=== PATIENT | male | born 1950 | race Caucasian/White ===

== ENCOUNTER 2017-11-28 00:53 | Inpatient (IN) | payer OTHER ==
[2017-11-28] MEDS ORDERED: Famotidine 20 MG/2 ML SDV IVPUSH ONE (00:57)
[2017-11-28] MEDS ORDERED: methylPREDNISolone Sodium Succinate 125 MG/2 ML SDV IVPUSH ONE ×2 (00:57→06:32)
--- NOTE | 2017-11-28 01:11 | EDM.PDOC ---
ED HPI GENERAL MEDICAL PROBLEM - General Chief Complaint: Allergic Reaction Stated Complaint: [facility] Time Seen by Provider: 11/28/17 01:00 - History of Present Illness INITIAL COMMENTS - FREE TEXT/NARRATIVE: 66-year-old male presents emergency room with hives tongue and facial swelling. Patient has had itching and hives for the last 2-3 days then this evening he noted throat tightness and tongue swelling. Patient is not aware of any new exposures. Patient has not had problems like this in the past the patient has had a cough bringing up mostly clear sputum at times blood-tinged. EMS thought he was vomiting but with further clarification from the patient he was not vomiting just had this productive cough. The patient does not smoke however 25 years ago he was a light smoker currently the patient uses oral tobacco. In route the patient received IM epinephrine Benadryl and Zofran his itching is not completely resolved but much better. Throat Pain Score (Numeric/FACES): 8 - Related Data Allergies Allergy/AdvReac Type Severity Reaction Status Date / Time No Known Allergies Allergy Verified 11/28/17 01:24 Home Meds: Home Meds Allopurinol [Zyloprim] 300 mg PO DAILY 04/20/15 [History] Simvastatin [Zocor] 40 mg PO BEDTIME 04/20/15 [History] Past Medical History HEENT History: Reports: Epistaxis, Impaired Vision Cardiovascular History: Reports: Afib, High Cholesterol, Hypertension Other Cardiovascular History: heart ablation > 5 yrs ago. Gastrointestinal History: Reports: Colon Polyp, GERD Genitourinary History: Reports: Chronic Renal Insuffiency Musculoskeletal History: Reports: Fracture, Gout, Osteoarthritis Oncologic (Cancer) History: Reports: Prostate - Past Surgical History Cardiovascular Surgical History: Reports: Other (See Below) Musculoskeletal Surgical History: Reports: Hip Replacement, ORIF Social & Family History - Family History Respiratory: Reports: Other (See Below) Other Respiratory Family Hisory: emphysema Musculoskeletal: Reports: Osteoporosis Neurological: Reports: CVA Endocrine/Metabolic: Reports: Diabetes, type II Oncologic: Reports: Breast, Esophageal, Liver - Caffeine Use Caffeine Use: Reports: None - Living Situation & Occupation Living situation: Reports: , with Spouse Occupation: Employed ED ROS ALLERGIC REACTION - Review of Systems Review Of Systems: See Below Constitutional: Reports: No Symptoms HEENT: Reports: Rhinitis, Throat Swelling. Denies: Sinus Problem Respiratory: Reports: Cough, Sputum, Hemoptysis. Denies: Shortness of Breath Cardiovascular: Denies: Chest Pain, Blood Pressure Problem, Dyspnea on Exertion , Edema, Palpitations Endocrine: Reports: No Symptoms GI/Abdominal: Reports: Nausea. Denies: Abdominal Pain : Reports: No Symptoms Musculoskeletal: Reports: No Symptoms Skin: Reports: Rash, Urticaria Neurological: Reports: No Symptoms ED EXAM GENERAL NO PERIP PULSE - Physical Exam Exam: See Below Exam Limited By: No Limitations General Appearance: Alert, No Apparent Distress Eye Exam: Bilateral Eye: Normal Inspection Ears: Normal External Exam, Normal Canal, Hearing Grossly Normal, Normal TMs Nose: Normal Inspection, Normal Mucosa, No Blood Throat/Mouth: Normal Inspection, Normal Lips, Normal Teeth, Normal Gums, Normal Oropharynx, Normal Voice, No Airway Compromise Head: Atraumatic, Normocephalic Neck: Normal Inspection, Supple, Non-Tender, Full Range of Motion Respiratory/Chest: No Respiratory Distress, Lungs Clear, Normal Breath Sounds Cardiovascular: Regular Rate, Rhythm, No Edema, No Murmur Back Exam: Normal Inspection. No: CVA Tenderness (L), CVA Tenderness (R) Extremities: Normal Inspection Neurological: Alert, Oriented, Normal Cognition Skin Exam: Other (Faint hives) Lymphatic: No Adenopathy Course - Vital Signs Last Recorded V/S: Last Vital Signs Temp 36.3 C 11/28/17 01:21 Pulse 86 11/28/17 01:21 Resp 15 11/28/17 01:21 BP 97/85 11/28/17 01:21 Pulse Ox 95 11/28/17 01:21 - Orders/Labs/Meds Orders: Active Orders 24 hr Category Date Time Status RT Aerosol Therapy [RC] ASDIRECTED Care 11/28/17 06:41 Active Chest 2V [CR] Stat Exams 11/28/17 01:05 Taken Soft Tissue Neck w Cont [CT] Stat Exams 11/28/17 03:20 Taken CULTURE STREP A CONFIRMATION [] Stat Lab 11/28/17 02:18 Results STREP SCRN A RAPID W CULT CONF [RM] Stat Lab 11/28/17 02:18 Ordered Labs: Laboratory Tests 11/28/17 Range/Units 02:35 Sodium 138 (136-145) mEq/L Potassium 4.3 (3.5-5.1) mEq/L Chloride 107 (98-107) mEq/L Carbon Dioxide 19 L (21-32) mEq/L Anion Gap 16.3 H (5-15) BUN 25 H (7-18) mg/dL Creatinine 1.6 H (0.7-1.3) mg/dL Est Cr Clr Drug Dosing 45.63 mL/min Estimated GFR (MDRD) 43 (>60) mL/min BUN/Creatinine Ratio 15.6 (14-18) Glucose 112 (80-115) mg/dL Calcium 8.6 (8.5-10.1) mg/dL Meds: Medications Discontinued Medications Generic Name Dose Route Start Last Admin Trade Name Freq PRN Reason Stop Dose Admin Diphenhydramine HCl 25 mg 11/28/17 06:26 Benadryl IVPUSH 11/28/17 06:27 ONETIME ONE Epinephrine HCl 0.5 mg 11/28/17 02:02 11/28/17 02:17 Adrenalin IM 11/28/17 02:03 0.5 mg ONETIME ONE Administration Famotidine 40 mg 11/28/17 00:57 11/28/17 01:17 Pepcid IVPUSH 11/28/17 00:58 40 mg ONETIME ONE Administration Sodium Chloride 1,000 mls @ 999 mls/hr 11/28/17 03:19 11/28/17 03:24 Normal Saline IV 11/28/17 04:19 999 mls/hr ONETIME ONE Administration Iopamidol 80 ml 11/28/17 03:36 11/28/17 05:54 Isovue-300 (61%) IVPUSH 11/28/17 03:37 80 ml ONETIME ONE Administration Methylprednisolone Sodium Succinate 125 mg 11/28/17 00:57 11/28/17 01:17 Solu-Medrol IVPUSH 11/28/17 00:58 125 mg ONETIME ONE Administration Methylprednisolone Sodium Succinate 125 mg 11/28/17 06:32 Solu-Medrol IVPUSH 11/28/17 06:33 ONETIME ONE Ondansetron HCl 4 mg 11/28/17 06:43 Zofran IVPUSH 11/28/17 06:44 ONETIME ONE Racepinephrine 0.5 ml 11/28/17 06:40 S-2 2.25% NEB 11/28/17 06:41 ONETIME ONE - Re-Assessments/Exams Free Text/Narrative Re-Assessment/Exam: 11/28/17 04:36 Check a basic metabolic he has some prerenal azotemia going on anticipating a neck CT, soft tissue as he is getting better but the hoarseness continues any feel still has a sensation of swelling in his neck. His creatinine is 1.6 be when in the 20s we'll give a liter of an NS before subjecting the patient to contrast 11/28/17 06:25 Results of the neck CT pending the patient is having slow gradual improvement in his voice however he's noticed a little bit of itching especially in the back of the scalp developing. 11/28/17 06:46 Situation reviewed reviewed with Dr. Romero who is willing to assume care of the patient in the ICU as he is slowly improving. I discussed this with the patient and his patient has some return of his nausea and his itching is improving Departure - Departure Time of Disposition: 06:45 Clinical Impression: Allergic reaction - Discharge Information Referrals: Yudy Norman, [employer] OPERATOR [Primary Care Provider] - Forms: ED Department Discharge - My Orders Last 24 Hours: My Active Orders 11/28/17 01:05 Chest 2V [CR] Stat 11/28/17 02:18 CULTURE STREP A CONFIRMATION [RM] Stat STREP SCRN A RAPID W CULT CONF [RM] Stat 11/28/17 03:20 Soft Tissue Neck w Cont [CT] Stat 11/28/17 06:41 RT Aerosol Therapy [RC] ASDIRECTED - Assessment/Plan Last 24 Hours: My Active Orders 11/28/17 01:05 Chest 2V [CR] Stat 11/28/17 02:18 CULTURE STREP A CONFIRMATION [RM] Stat STREP SCRN A RAPID W CULT CONF [RM] Stat 11/28/17 03:20 Soft Tissue Neck w Cont [CT] Stat 11/28/17 06:41 RT Aerosol Therapy [RC] ASDIRECTED
[2017-11-28] MEDS ORDERED: EPINEPHrine 1 MG/ML SDV IM ONE (02:02)
[2017-11-28] MEDS ORDERED: Sodium Chloride 0.9% 1,000 ML IV ONE (03:19)
[2017-11-28] MEDS ORDERED: Iopamidol 612 MG/ML 100 ML Bottle IVPUSH ONE (03:36)
[2017-11-28] MEDS ORDERED: diphenhydrAMINE 50 MG/ML SDV IVPUSH ONE (06:26)
[2017-11-28] MEDS ORDERED: Racepinephrine 2.25% 0.5 ML Neb Soln NEB ONE (06:40)
[2017-11-28] MEDS ORDERED: Ondansetron 4 MG/2 ML SDV IVPUSH ONE (06:43)
[2017-11-28] MEDS ORDERED: diphenhydrAMINE 50 MG/ML SDV ONE (07:19)
[2017-11-28] MEDS ORDERED: Racepinephrine 2.25% 0.5 ML Neb Soln NEB PRN (07:54)
[2017-11-28] MEDS ORDERED: diphenhydrAMINE 50 MG/ML SDV IVPUSH PRN (08:00)
[2017-11-28] MEDS ORDERED: Ondansetron 4 MG/2 ML SDV IV PRN (08:03)
[2017-11-28] MEDS ORDERED: Ondansetron 4 MG Tab.DIS PO PRN (08:03)
[2017-11-28] MEDS ORDERED: Polyethylene Glycol 3350 Powder 17 GM Packet PO PRN (08:03)
[2017-11-28] MEDS ORDERED: Bisacodyl 5 MG Tab PO PRN (08:03)
[2017-11-28] MEDS ORDERED: Acetaminophen 325 MG Tab PO PRN (08:03)
[2017-11-28] MEDS ORDERED: Acetaminophen/HYDROcodone 325-5 MG Tab PO PRN (08:03)
[2017-11-28] MEDS ORDERED: Docusate Sodium 100 MG Cap PO PRN (08:03)
[2017-11-28] MEDS ORDERED: Albuterol/Ipratropium 3.0-0.5 MG/3 ML Neb Soln NEB PRN (08:03)
[2017-11-28] MEDS ORDERED: Metoprolol Tartrate 5 MG/5 ML SDV IVPUSH PRN (08:10)
[2017-11-28] MEDS ORDERED: hydrALAZINE 20 MG/ML SDV IVPUSH PRN (08:10)
[2017-11-28] MEDS ORDERED: Sodium Chloride 0.9% 1,000 ML IV SCH (08:15)
[2017-11-28] MEDS ORDERED: diphenhydrAMINE/Zinc Acetate 1% Crm 28.3 GM Tube TOP PRN (08:35)
--- NOTE | 2017-11-28 09:05 | PCM.HP ---
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 He reportsitching and hives last 2 to 3 days however yesterday evening he noted throat tightness and tongue swelling. States he was actually unable to talk due to the swelling. Denies any new exposures that he is aware of, includinglaundry detergents, soaps, jewelry, clothing, colognes, plants, or animals. Denies anysimilar symptoms in the past. He has a cough as a bring up clear sputum at times that can be blood tinged. Initially thought his vomiting however ED provider questioned further and it was determined he just has a productive cough. He was a light smoker however he has not smoked in the past 25 years. He does use oral tobacco. EMS crew gave the patient IM epinephrine, Benadryl and Zofran in route. This improved symptoms however they did not resolve. In the ED temp was 36.3 Celsius. Pulse 86. Respirations 15. BP 97/85. Pulse ox 95%. BMP was obtained showing a sodium of 138. Potassium 4.3. Chloride 107. Carbon dioxide 19. Anion gap elevated at 16.3. BUN is 25. Creatinine 1.6. EGFR is 43. Glucose 112. Calcium 8.6. In the ED he was given 25 mg IVP Benadryl, 0.5 mg IM epinephrine, 40 mg IV push Pepcid, a 1 L fluid bolus, 125 mg Solu-Medrol, 4 mg Zofran, and 0.5 mL nebulized racemic epinephrine. He undergo a rapid strep screen which was negativedue to throat pain. Culture was sent. CT of the neck with contrast was obtained and is interpreted by Dr. Alfonso as "1. Soft tissue prominence in the glottic region was slightly prominent epiglottis. Please correlate if patient has any symptoms of infection. Difficult to completely exclude neoplasm if symptoms are chronic. Findings could also represent change from chronic aspiration. 2. Circumferential wall thickening within the esophagus raising the possibility of chronic reflux esophagitis. 3. Other incidental findings as noted above." 2 view chest x-ray is obtained and shows nothing acute. He continued to have very slow improvement with his voice hoarseness and continue to be pruritic. He carries a history of: impaired vision, A. fib, HLD,HTN, heart ablation greater than 5 years ago, colon polyps, GERD, chronic renal insufficiency, gout , OA, prostate cancer. He is a former light smoker and does utilize chewing tobacco. He is subsequently admitted to the ICU under observation status. His PCP is Yudy Norman in [facility]. Throat Pain Score (Numeric/FACES): 8 - Related Data Allergies/Adverse Reactions: Allergies Allergy/AdvReac Type Severity Reaction Status Date / Time No Known Allergies Allergy Verified 11/28/17 08:21 Home Medications: Home Meds Allopurinol [Zyloprim] 300 mg PO DAILY 04/20/15 [History] Simvastatin [Zocor] 40 mg PO BEDTIME 04/20/15 [History] Carvedilol [Coreg] 6.25 mg PO BID 11/28/17 [History] buPROPion HCl [Wellbutrin Sr] 150 mg PO BID 11/28/17 [History] Past Medical History HEENT History: Reports: Epistaxis, Impaired Vision Cardiovascular History: Reports: Afib, High Cholesterol, Hypertension Other Cardiovascular History: heart ablation > 5 yrs ago. Gastrointestinal History: Reports: Colon Polyp, GERD Genitourinary History: Reports: Chronic Renal Insuffiency Musculoskeletal History: Reports: Fracture, Gout, Osteoarthritis Oncologic (Cancer) History: Reports: Prostate, Renal - Past Surgical History Head Surgeries/Procedures: Reports: None HEENT Surgical History: Reports: None Cardiovascular Surgical History: Reports: Other (See Below) GI Surgical History: Reports: None Male Surgical History: Reports: None Musculoskeletal Surgical History: Reports: Hip Replacement, ORIF Social & Family History - Family History Respiratory: Reports: Other (See Below) Other Respiratory Family Hisory: emphysema Musculoskeletal: Reports: Osteoporosis Neurological: Reports: CVA Endocrine/Metabolic: Reports: Diabetes, type II Oncologic: Reports: Breast, Esophageal, Liver Other Oncologic Family History: throat - Tobacco Use Smoking Status *Q: Current Every Day Smoker Years of Tobacco use: 55 Packs/Tins Daily: 0.3 - Caffeine Use Caffeine Use: Reports: Soda - Alcohol Use Days Per Week of Alcohol Use: 7 Number of Drinks Per Day: 2 Total Drinks Per Week: 14 - Recreational Drug Use Recreational Drug Use: No - Living Situation & Occupation Living situation: Reports: , with Spouse Occupation: Employed H&P Review of Systems - Review of Systems: Review Of Systems: See Below General: Reports: Weakness, Fatigue. Denies: Fever, Chills, Malaise HEENT: Reports: Dysphasia, Sore Throat, Other (Feels like throat is still swollen. Reports some hoarsness to voice. Reports nose pain and pruritis ). Denies: Ear Pain, Eye Pain, Headaches, Post Nasal Drip, Sinus Congestion, Vertigo Pulmonary: Reports: Wheezing, Cough, Sputum, Hemoptysis. Denies: Shortness of Breath Cardiovascular: Denies: Chest Pain, Palpitations, Dyspnea on Exertion, Edema Gastrointestinal: Denies: Abdominal Pain, Constipation, Diarrhea, Decreased Appetite, Nausea, Vomiting Genitourinary: Reports: No Symptoms. Denies: Dysuria, Frequency, Burning, Pain , Urgency Musculoskeletal: Reports: No Symptoms Skin: Reports: No Symptoms, Pruritis (especially on nose and chest ), Rash (on abdomen - improved now ). Denies: Cyanosis, Jaundice, Diaphoresis, Erythema, Wound, Burn(s), Change in Color Psychiatric: Reports: No Symptoms Neurological: Reports: Difficulty Walking, Weakness, Change in Speech. Denies: Confusion, Dizziness, Headache, Pre-Existing Deficit, Syncope, Tingling, Tremors , Trouble Speaking, Gait Disturbance Hematologic/Lymphatic: Reports: No Symptoms Immunologic: Reports: No Symptoms Exam - Exam Exam: See Below - Vital Signs Vital Signs: Last Vital Signs Temp 97.3 F 11/28/17 01:21 Pulse 86 11/28/17 01:21 Resp 15 11/28/17 01:21 BP 97/85 11/28/17 01:21 Pulse Ox 97 11/28/17 08:03 Weight: 214 lb 1.6 oz - Exam Quality Assessment: DVT Prophylaxis General: Alert, Oriented, Cooperative. No: Mild Distress HEENT: Conjunctiva Clear, EACs Clear, EOMI, Hearing Intact, Mucosa Moist & [place] , Nares Patent, Normal Nasal Septum, Posterior Pharynx Clear, Other (Face still appears somewhat swollen and voice is somewhat hoarse ), PERRLA Neck: Supple, Trachea Midline, Full Range of Motion Lungs: Clear to Auscultation, Normal Respiratory Effort, Decreased Breath Sounds Cardiovascular: Regular Rate, Regular Rhythm. No: Systolic Murmur, Diastolic Murmur GI/Abdominal Exam: Normal Bowel Sounds, Soft, Non-Tender, No Organomegaly, No Distention, No Mass, Pelvis Stable (Male) Exam: Deferred Rectal (Males) Exam: Deferred Back Exam: Normal Inspection, Full Range of Motion Extremities: Normal Inspection, Normal Range of Motion, Non-Tender, No Pedal Edema, Normal Capillary Refill Peripheral Pulses: 2+: Posterior Tibial (L), Posterior Tibial (R), Dorsalis Pedis (L), Dorsalis Pedis (R), 3+: Radial (L), Radial (R) Skin: Warm, Dry, Intact, Rash (scattered very faint hives to chest and abdomen ) . No: Ecchymosis Neurological: Cranial Nerves Intact (grossly ) Neuro Extensive - Mental Status: Alert, Oriented x3, Normal Mood/Affect, Normal Cognition, Memory Intact Psychiatric: Alert, Normal Affect, Normal Mood - Patient Data Lab Results Last 24 hrs: Laboratory Results - last 24 hr 11/28/17 Range/Units 02:35 Sodium 138 (136-145) mEq/L Potassium 4.3 (3.5-5.1) mEq/L Chloride 107 (98-107) mEq/L Carbon Dioxide 19 L (21-32) mEq/L Anion Gap 16.3 H (5-15) BUN 25 H (7-18) mg/dL Creatinine 1.6 H (0.7-1.3) mg/dL Est Cr Clr Drug Dosing 45.63 mL/min Estimated GFR (MDRD) 43 (>60) mL/min BUN/Creatinine Ratio 15.6 (14-18) Glucose 112 (80-115) mg/dL Calcium 8.6 (8.5-10.1) mg/dL Result Diagrams: 11/28/17 08:55 11/28/17 08:55 Stanislaw Results Last 24 hrs: Microbiology 11/28/17 02:18 Group A Streptococcus Rapid Screen - Final Throat NEGATIVE STREP A SCREEN - Problem List (1) Anaphylactic reaction SNOMED Code(s): 51902058 ICD Code: T78.2XXA - ANAPHYLACTIC SHOCK, UNSPECIFIED, INITIAL ENCOUNTER Status: Acute Priority: High Current Visit: Yes Qualifiers: Encounter type: initial encounter Qualified Code(s): T78.2XXA - Anaphylactic shock, unspecified, initial encounter (2) CKD (chronic kidney disease) stage 3, GFR 30-59 ml/min SNOMED Code(s): 483657652 ICD Code: N18.3 - CHRONIC KIDNEY DISEASE, STAGE 3 (MODERATE) Status: Chronic Priority: Medium Current Visit: Yes (3) Atrial fibrillation SNOMED Code(s): 75413093 ICD Code: I48.91 - UNSPECIFIED ATRIAL FIBRILLATION Status: Chronic Priority: Medium Current Visit: No Qualifiers: Atrial fibrillation type: unspecified Qualified Code(s): I48.91 - Unspecified atrial fibrillation (4) History of prostate cancer SNOMED Code(s): 805634278 ICD Code: Z85.46 - PERSONAL HISTORY OF MALIGNANT NEOPLASM OF PROSTATE Status: Chronic Priority: Low Current Visit: No (5) History of kidney surgery SNOMED Code(s): 495416975 ICD Code: Z98.890 - OTHER SPECIFIED POSTPROCEDURAL STATES Status: Chronic Priority: Low Current Visit: No (6) HLD (hyperlipidemia) SNOMED Code(s): 48479858 ICD Code: E78.5 - HYPERLIPIDEMIA, UNSPECIFIED Status: Chronic Priority: Low Current Visit: No Qualifiers: Hyperlipidemia type: unspecified Qualified Code(s): E78.5 - Hyperlipidemia , unspecified (7) HTN (hypertension) SNOMED Code(s): 87778738 ICD Code: I10 - ESSENTIAL (PRIMARY) HYPERTENSION Status: Chronic Priority : Medium Current Visit: No Qualifiers: Hypertension type: unspecified Qualified Code(s): I10 - Essential (primary ) hypertension (8) History of cardiac radiofrequency ablation SNOMED Code(s): 986559085, 386046171 ICD Code: Z98.890 - OTHER SPECIFIED POSTPROCEDURAL STATES Status: Chronic Priority: Medium Current Visit: No (9) GERD (gastroesophageal reflux disease) SNOMED Code(s): 364825712 ICD Code: K21.9 - GASTRO-ESOPHAGEAL REFLUX DISEASE WITHOUT ESOPHAGITIS Status: Chronic Priority: Medium Current Visit: No Qualifiers: Esophagitis presence: esophagitis presence not specified Qualified Code(s) : K21.9 - Gastro-esophageal reflux disease without esophagitis (10) Gout SNOMED Code(s): 28966923 ICD Code: M10.9 - GOUT, UNSPECIFIED Status: Chronic Priority: Low Current Visit: No Qualifiers: Gout site: unspecified site Gout etiology: unspecified cause Chronicity: unspecified Qualified Code(s): M10.9 - Gout, unspecified (11) Osteoarthritis SNOMED Code(s): 105470434 ICD Code: M19.90 - UNSPECIFIED OSTEOARTHRITIS, UNSPECIFIED SITE Status: Chronic Priority: Low Current Visit: No Qualifiers: Osteoarthritis location: unspecified site Osteoarthritis type: primary Qualified Code(s): M19.91 - Primary osteoarthritis, unspecified site (12) Throat pain SNOMED Code(s): 698788261 ICD Code: R07.0 - PAIN IN THROAT Status: Acute Priority: High Current Visit: Yes Problem List Initiated/Reviewed/Updated: Yes Orders Last 24hrs: Active Orders 24 hr Category Date Time Status Patient Status [ADT] Routine ADT 11/28/17 07:25 Active Ambulate [RC] PER UNIT ROUTINE Care 11/28/17 08:02 Active Cardiac Monitoring [RC] CONTINUOUS Care 11/28/17 08:02 Active Height and Weight [RC] 04 Care 11/28/17 08:02 Active Intake and Output [RC] 04,16 Care 11/28/17 08:02 Active Oxygen Therapy [RC] PRN Care 11/28/17 08:03 Active Pulse Oximetry [RC] CONTINUOUS Care 11/28/17 08:02 Active RT Aerosol Therapy [RC] ASDIRECTED Care 11/28/17 06:41 Active Up With Assistance [RC] ASDIRECTED Care 11/28/17 08:02 Active VTE/DVT Education [RC] Care 11/28/17 08:02 Active Consult to Occupational Therapy [OT Evaluation and Cons 11/28/17 09:04 Active Treatment] [CONS] Routine Consult to Respiratory Therapy [Respiratory Care Assess Cons 11/28/17 08:07 Active and Treatment] [CONS] Routine PT Evaluation and Treatment [CONS] Routine Cons 11/28/17 09:04 Active NPO [Nothing Per Oral Diet] [DIET] Diet 11/28/17 Lunch Active Chest 2V [CR] Stat Exams 11/28/17 01:05 Taken Soft Tissue Neck w Cont [CT] Stat Exams 11/28/17 03:20 Taken BASIC METABOLIC PANEL,BMP [CHEM] AM Lab 11/29/17 05:11 Ordered BASIC METABOLIC PANEL,BMP [CHEM] AM Lab 11/30/17 05:11 Ordered BASIC METABOLIC PANEL,BMP [CHEM] AM Lab 12/01/17 05:11 Ordered BASIC METABOLIC PANEL,BMP [CHEM] AM Lab 12/02/17 05:11 Ordered BASIC METABOLIC PANEL,BMP [CHEM] Routine Lab 11/28/17 08:55 Received C-REACTIVE PROTEIN [CHEM] Routine Lab 11/28/17 08:55 Received CBC WITH AUTO DIFF [HEME] AM Lab 11/29/17 05:11 Ordered CBC WITH AUTO DIFF [HEME] AM Lab 11/30/17 05:11 Ordered CBC WITH AUTO DIFF [HEME] AM Lab 12/01/17 05:11 Ordered CBC WITH AUTO DIFF [HEME] AM Lab 12/02/17 05:11 Ordered CBC WITH AUTO DIFF [HEME] Routine Lab 11/28/17 08:55 Received CRP [C-REACTIVE PROTEIN] [CHEM] AM Lab 11/29/17 05:11 Ordered CRP [C-REACTIVE PROTEIN] [CHEM] AM Lab 11/30/17 05:11 Ordered CRP [C-REACTIVE PROTEIN] [CHEM] AM Lab 12/01/17 05:11 Ordered CRP [C-REACTIVE PROTEIN] [CHEM] AM Lab 12/02/17 05:11 Ordered CULTURE STREP A CONFIRMATION [RM] Stat Lab 11/28/17 02:18 Results MAGNESIUM [CHEM] AM Lab 11/29/17 05:11 Ordered MAGNESIUM [CHEM] AM Lab 11/30/17 05:11 Ordered MAGNESIUM [CHEM] AM Lab 12/01/17 05:11 Ordered MAGNESIUM [CHEM] AM Lab 12/02/17 05:11 Ordered MAGNESIUM [CHEM] Routine Lab 11/28/17 08:55 Received STREP SCRN A RAPID W CULT CONF [RM] Stat Lab 11/28/17 02:18 Ordered Acetaminophen [Tylenol] Med 11/28/17 08:03 Active 650 mg PO Q4H PRN Acetaminophen/HYDROcodone [[place] 325-5 MG] Med 11/28/17 08:03 Active 1 tab PO Q4H PRN Albuterol/Ipratropium [DuoNeb 3.0-0.5 MG/3 ML] Med 11/28/17 08:03 Active 3 ml NEB Q4H PRN Allopurinol [Zyloprim] Med 11/29/17 09:00 Ordered 300 mg PO DAILY Bisacodyl [Dulcolax] Med 11/28/17 08:03 Active 5 mg PO DAILY PRN Docusate Sodium [Colace] Med 11/28/17 08:03 Active 100 mg PO BID PRN Docusate Sodium/Sennosides [Senna Plus] Med 11/28/17 08:03 Active 1 tab PO BID PRN Famotidine [Pepcid] Med 11/28/17 09:00 Active 20 mg PO BID Magnesium Rep Pharmacy to Dose [Pharmacy to Dose - Med 11/28/17 08:15 Active Magnesium Replacement] 0 dose .XX ASDIRECTED PRN Metoprolol Tartrate [Lopressor] Med 11/28/17 08:10 Active 5 mg IVPUSH Q4H PRN Ondansetron [Zofran ODT] Med 11/28/17 08:03 Active 4 mg PO Q6H PRN Ondansetron [Zofran] Med 11/28/17 08:03 Active 4 mg IV Q6H PRN Polyethylene Glycol 3350 [MiraLAX] Med 11/28/17 08:03 Active 17 gm PO DAILY PRN Potassium Rep Pharmacy to Dose [Pharmacy to Dose - Med 11/28/17 08:15 Active Potassium Replacement] 0 dose .XX ASDIRECTED PRN Racepinephrine [S-2 2.25%] Med 11/28/17 07:54 Active 0.5 ml NEB Q4H PRN Simvastatin [Zocor] Med 11/28/17 21:00 Ordered 40 mg PO BEDTIME Sodium Chloride 0.9% [Normal Saline] 1,000 ml Med 11/28/17 08:15 Active IV ASDIRECTED diphenhydrAMINE [Benadryl] Med 11/28/17 08:00 Active 25 mg IVPUSH Q8H PRN diphenhydrAMINE/Zinc Acetate [Benadryl Itch Stopping Med 11/28/17 08:35 Active Crm] 0 gm TOP Q6H PRN hydrALAZINE [Apresoline] Med 11/28/17 08:10 Active 20 mg IVPUSH Q4H PRN methylPREDNISolone Sod Succ [Solu-MEDROL] Med 11/28/17 13:00 Active 40 mg IVPUSH Q6H Sequential Compression Device [OM.PC] Per Unit Routine Oth 11/28/17 08:03 Ordered Resuscitation Status Routine Resus Stat 11/28/17 08:02 Ordered Medication Orders Acetaminophen (Tylenol) 650 mg PO Q4H PRN PRN Reason: Pain (Mild 1-3)/fever Hydrocodone Bitart/Acetaminophen ([place] 325-5 Mg) 1 tab PO Q4H PRN PRN Reason: Pain (moderate 4-6) Albuterol/Ipratropium (Duoneb 3.0-0.5 Mg/3 Ml) 3 ml NEB Q4H PRN PRN Reason: Shortness Of Breath/wheezing Allopurinol (Zyloprim) 300 mg PO DAILY ANY Bisacodyl (Dulcolax) 5 mg PO DAILY PRN PRN Reason: Constipation Diphenhydramine HCl (Benadryl) 25 mg IVPUSH Q8H PRN PRN Reason: Itching Docusate Sodium (Colace) 100 mg PO BID PRN PRN Reason: Constipation Famotidine (Pepcid) 20 mg PO BID ANY Hydralazine HCl (Apresoline) 20 mg IVPUSH Q4H PRN PRN Reason: Hypertension Sodium Chloride (Normal Saline) 1,000 mls @ 100 mls/hr IV ASDIRECTED ANY Stop: 11/29/17 04:00 Magnesium Sulfate (Pharmacy To Dose - Magnesium Replacement) 0 dose .XX ASDIRECTED PRN PRN Reason: RX TO WATCH MAG LEVELS Methylprednisolone Sodium Succinate (Solu-Medrol) 40 mg IVPUSH Q6H ANY Metoprolol Tartrate (Lopressor) 5 mg IVPUSH Q4H PRN PRN Reason: Tachycardia Ondansetron HCl (Zofran Odt) 4 mg PO Q6H PRN PRN Reason: nausea, able to take PO Ondansetron HCl (Zofran) 4 mg IV Q6H PRN PRN Reason: Nausea/Vomiting Polyethylene Glycol (Miralax) 17 gm PO DAILY PRN PRN Reason: Constipation Potassium Chloride (Pharmacy To Dose - Potassium Replacement) 0 dose .XX ASDIRECTED PRN PRN Reason: RX TO WATCH K LEVELS Racepinephrine (S-2 2.25%) 0.5 ml NEB Q4H PRN PRN Reason: Allergic Rxn/SOB Senna/Docusate Sodium (Senna Plus) 1 tab PO BID PRN PRN Reason: Constipation Simvastatin (Zocor) 40 mg PO BEDTIME ANY Zinc Acetate/Diphenhydramine (Benadryl Itch Stopping Crm) 0 gm TOP Q6H PRN PRN Reason: Itching Assessment/Plan Comment:: I/P: Acute: Anaphylactic reaction - Presented via ambulance with hives, tongue and face swelling, voice changes , pruritis, rash - SubQ epi, benadryl, and zofran given enroute - No history of prior symptoms - Cannot think of new exposures - No new cologne, clothes soap, soap, clothing, plants, pets, medications, etc - SubQ epi, Nebulized epi, steroid, pepcid, zofran, benadryl given in ED - PRN racemic epi Q4hr PRN - PRN benadryl IVP and topical - RT/Duo-neb as needed - H2 cyn BID - IV Fluids as ordered - Difficulty swallowing - NPO for now; resume normal diet once cleared by LANDMEN - LANDMEN swallow evaluation - no concerns, resume diet - Suggest follow-up field technical specialist consult after discharge - Will need home EpiPen and training at discharge Generalized weakness - Likely 2/2 above - medications, etc - Pt/OT consult Throat pain, improving - Negative rapid strep test in ED - Strep culture pending - Likely 2/2 airway swelling and attempting to talk - Improved since in ED - doesn't think he will need medication for it - Continue to monitor Chronic renal insufficiency - Appears to be around baseline with eGFR in low 40s on prior visits - 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
[2017-11-28] MEDS: Famotidine 20 MG Tab PO SCH ×2 (09:13→20:26)
--- NOTE | 2017-11-28 10:43 | CR ---
Chest: Two views of the chest were obtained. Comparison: Prior chest x-ray of 04/20/15. Heart size and mediastinum are normal. Minimal scarring is seen within the left base. Lungs otherwise are clear. Degenerative spurring is noted within the spine. Minimal scoliosis is noted. Impression: 1. Nothing acute is appreciated on two-view chest x-ray. Diagnostic code #2
--- NOTE | 2017-11-28 10:43 | CT ---
CT neck Technique: Multiple axial sections through the neck were obtained. Intravenous contrast was utilized. Instructed coronal and sagittal images were reviewed. Findings: Soft tissue prominence is seen within the glottic region. Epiglottis is slightly prominent in size. No adenopathy seen within the neck. Parotid salivary glands and submandibular salivary glands are normal. Retention cyst seen inferiorly within the left maxillary sinus measuring about 1.4 cm.. Visualized lung bases are clear. Circumferential wall thickening appears to be present within the visualized esophagus. Bone window settings show scattered degenerative change within the cervical spine. Impression: 1. Soft tissue prominence in the glottic region with slightly prominent epiglottis. Please correlate if patient has any symptoms of infection. Difficult to completely exclude neoplasm if symptoms are chronic. Findings could also represent change from chronic aspiration. 2. Circumferential wall thickening within the esophagus raising the possibility of chronic reflux esophagitis. 3. Other incidental findings as noted above. Diagnostic code #3 I agree with preliminary report from [facility], finalized at 11/28/17, 7:26 AM Central Time
[2017-11-28] MEDS ORDERED: Pneumococcal Polyvalent-23 Vaccine 0.5 ML SDV IM ONE (10:53)
[2017-11-28] MEDS: methylPREDNISolone Sodium Succinate 40 MG/1 ML SDV IVPUSH SCH ×2 (12:08→18:31)
--- NOTE | 2017-11-28 16:40 | PCM.DCSUM1 ---
Discharge Summary - Hospital Course Brief History: Leif Valentin is a 66 yo male who presents to our ED in the investor relations coordinator hours of 11/28/17 via [place] [facility] with hives along with tongue and facial swelling. He reportsitching and hives last 2 to 3 days however yesterday evening he noted throat tightness and tongue swelling. States he was actually unable to talk due to the swelling. Denies any new exposures that he is aware of, includinglaundry detergents, soaps, jewelry, clothing, colognes, plants, or animals. Denies anysimilar symptoms in the past. He has a cough as a bring up clear sputum at times that can be blood tinged. Initially thought his vomiting however ED provider questioned further and it was determined he just has a productive cough. He was a light smoker however he has not smoked in the past 25 years. He does use oral tobacco. EMS crew gave the patient IM epinephrine, Benadryl and Zofran in route. This improved symptoms however they did not resolve. In the ED temp was 36.3 Celsius. Pulse 86. Respirations 15. BP 97/85. Pulse ox 95%. BMP was obtained showing a sodium of 138. Potassium 4.3. Chloride 107. Carbon dioxide 19. Anion gap elevated at 16.3. BUN is 25. Creatinine 1.6. EGFR is 43. Glucose 112. Calcium 8.6. In the ED he was given 25 mg IVP Benadryl, 0.5 mg IM epinephrine, 40 mg IV push Pepcid, a 1 L fluid bolus, 125 mg Solu-Medrol, 4 mg Zofran, and 0.5 mL nebulized racemic epinephrine. He undergo a rapid strep screen which was negativedue to throat pain. Culture was sent. CT of the neck with contrast was obtained and is interpreted by Dr. Alfonso as "1. Soft tissue prominence in the glottic region was slightly prominent epiglottis. Please correlate if patient has any symptoms of infection. Difficult to completely exclude neoplasm if symptoms are chronic. Findings could also represent change from chronic aspiration. 2. Circumferential wall thickening within the esophagus raising the possibility of chronic reflux esophagitis. 3. Other incidental findings as noted above." 2 view chest x-ray is obtained and shows nothing acute. He continued to have very slow improvement with his voice hoarseness and continue to be pruritic. He carries a history of: impaired vision, A. fib, HLD,HTN, heart ablation greater than 5 years ago, colon polyps, GERD, chronic renal insufficiency, gout, OA, prostate cancer. He is a former light smoker and does utilize chewing tobacco. He is subsequently admitted to the ICU under observation status. His PCP is Yudy Norman in [place]. - Discharge Data Discharge Date: 11/29/17 Discharge Disposition: Home, Self-Care 01 Condition: Good - Discharge Diagnosis/Problem(s) (1) Allergic reaction SNOMED Code(s): 387933868 ICD Code: T78.40XA - ALLERGY, UNSPECIFIED, INITIAL ENCOUNTER Status: Acute Priority: High Current Visit: Yes (2) Anaphylactic reaction SNOMED Code(s): 30674226 ICD Code: T78.2XXA - ANAPHYLACTIC SHOCK, UNSPECIFIED, INITIAL ENCOUNTER Status: Acute Priority: High Current Visit: Yes Qualifiers: Encounter type: initial encounter Qualified Code(s): T78.2XXA - Anaphylactic shock, unspecified, initial encounter (3) GERD (gastroesophageal reflux disease) SNOMED Code(s): 934032917 ICD Code: K21.9 - GASTRO-ESOPHAGEAL REFLUX DISEASE WITHOUT ESOPHAGITIS Status: Acute Current Visit: Yes (4) Dermatographic urticaria SNOMED Code(s): 8314108 ICD Code: L50.3 - DERMATOGRAPHIC URTICARIA Status: Acute Current Visit: Yes - Patient Summary/Data Operative Procedure(s) Performed: None Complications: None Consults: Consultations 11/28/17 08:07 Consult to Respiratory Therapy [Respiratory Care Assess and Treatment] [CONS] Routine 11/28/17 09:04 Consult to Occupational Therapy [OT Evaluation and Treatment] [CONS] Routine PT Evaluation and Treatment [CONS] Routine 11/28/17 09:58 Consult to Speech Language Pathology [ELECTRICAL HARDWARE ENGINEER Evaluation and Treatment] [CONS] Routine Labs Pending at D/C: None Recommended Follow-up Testing/Procedures: None Planned Operative Procedure(s) after DC: None Hospital Course: Patient was primarily admitted for allergic reaction and subsequently went into anaphylaxis. He seemed to have an undiagnosed chronic rhinitis or seasonal rhinits. He denied any changes on personal hygiene products, cologne, clothing type or detergents. 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 On his way to the hospital, he received IM Epinephrine, Benadryl and Zofran. He improved on this regimen however his symptoms did not resolve. In ED, he was given an additional 25 mg IVP Benadryl, 0.5 mg IM epinephrine, 40 mg IV push Pepcid, a 1 L fluid bolus, 125 mg Solu-Medrol, 4 mg Zofran, and 0.5 mL nebulized racemic epinephrine. His CT of the neck with contrast showed soft tissue prominence in the glottic region was slightly prominent epiglottis. With this concern, patient was admitted to the unit for further observation. In the unit, he was provided similar regimen as above and he continued to get better. Overnight, no acute issues reported and the following day after admission his symptoms completely resolved. His hospital course was uncomplicated and the rest of his chronic medical illness remained stable during his short stay. Patient was discharge with H1B and Epi-pen with instructions provided. He was advised to protect himself or wear mask each time he works outside or performs outdoor activities. He was further advised to get skin testing and see an gardener florist to address his hypersensitivity disorder. And most importantly, he was advised to come back or seek immediate care should his symptoms persist or get worse. The patient expressed understanding and in agreement with the plans as discussed above. All questions were answered. - Patient Instructions Diet: Usual Diet as Tolerated Activity: As Tolerated Driving: Do Not Drive Showering/Bathing: May Shower Notify Provider of: Fever, Increased Pain, Swelling and Redness, Nausea and/or Vomiting Other/Special Instructions: - Please take all new medications as directed. - Resume all routine home medications and continue home activities as tolerated. - Recommend you wear mask if you outdoor activities. - Recommend you see an Non Garment Sewing Machine Operator and have skin testing done. - Carry Epi-pen with you all the time and must inform whoever is with the back up (other autoinjector). - Follow up or call your family doctor for any questions or concerns after discharge. - Come back or seek immediate care should your symptoms persist or get worse - Discharge Plan Prescriptions/Med Rec: EPINEPHrine [Epipen] 0.3 mg IM ASDIRECTED PRN #1 ml PRN Reason: Anaphylaxis/Hypersensitivity Fexofenadine [Peace] 180 mg PO DAILY #60 tab Home Medications: Home Meds Allopurinol [Zyloprim] 300 mg PO DAILY 04/20/15 [History] Simvastatin [Zocor] 40 mg PO BEDTIME 04/20/15 [History] Carvedilol [Coreg] 6.25 mg PO BID 11/28/17 [History] EPINEPHrine [Epipen] 0.3 mg IM ASDIRECTED PRN #1 ml 11/28/17 [Rx] Fexofenadine [Peace] 180 mg PO DAILY #60 tab 11/28/17 [Rx] buPROPion HCl [Wellbutrin SR] 150 mg PO BID 11/28/17 [History] Referrals: Yudy Norman, FITNESS WORKER [Primary Care Provider] - - Discharge Summary/Plan Comment DC Time >30 min.: Yes (45 mins) Discharge Summary/Plan Comment: Discharge to Home - General Info Date of Service: 11/29/17 Admission Dx/Problem (Free Text: Admission Diagnosis/Problem Admission Diagnosis/Problem Allergic reaction Subjective Update: Follow Up Functional Status: Reports: Pain Controlled, Tolerating Diet, Ambulating, Urinating. Denies: New Symptoms - Review of Systems General: Denies: Fever, Weakness, Fatigue, Malaise, Chills HEENT: Denies: Dysphasia, Ear Pain, Eye Pain, Headaches, Sinus Congestion, Sore Throat, Rhinitis, Other Pulmonary: Denies: Shortness of Breath, Pleuritic Chest Pain, Other Cardiovascular: Denies: Chest Pain, Palpitations, Dyspnea on Exertion, Lightheadedness Gastrointestinal: Denies: Abdominal Pain, Difficulty Swallowing, Nausea, Vomiting Genitourinary: Reports: No Symptoms Musculoskeletal: Reports: No Symptoms Skin: Denies: Cyanosis, Mottled, Pallor, Diaphoresis, Pruritis, Rash Neurological: Denies: Confusion, Difficulty Walking, Weakness, Gait Disturbance Psychiatric: Denies: Depression, Anxiety, Agitation, Hallucinations Systems Review Comment: No overnight or acute issues. He slept pretty good. He feels good and has no complaints this morning. - Patient Data Vitals - Most Recent: Last Vital Signs Temp 37.3 C 11/28/17 16:00 Pulse 97 11/28/17 16:00 Resp 20 11/28/17 16:00 BP 150/84 H 11/28/17 16:00 Pulse Ox 97 11/28/17 16:00 Weight - Most Recent: 97.114 kg I&O - Last 24 hours: Intake & Output 11/28/17 11/28/17 11/28/17 06:59 14:59 22:59 Intake Total 120 1214 Balance 120 1214 Lab Results - Last 24 hrs: Laboratory Results - last 24 hr 11/28/17 11/28/17 11/28/17 Range/Units 02:35 08:55 08:55 WBC 9.55 H (4.23-9.07) K/mm3 RBC 4.29 L (4.63-6.08) M/mm3 Hgb 13.7 (13.7-17.5) gm/L Hct 40.0 L (40.1-51.0) % MCV 93.2 H (79.0-92.2) fl MCH 31.9 (25.7-32.2) pg MCHC 34.3 (32.2-35.5) g/dl RDW Std Deviation 41.6 (35.1-43.9) fL Plt Count 166 (163-337) K/mm3 MPV 9.2 L (9.4-12.3) fl Neut % (Auto) 93.7 H (34.0-67.9) % Lymph % (Auto) 5.3 L (21.8-53.1) % [place] % (Auto) 0.8 L (5.3-12.2) % Eos % (Auto) 0 L (0.8-7.0) Baso % (Auto) 0.1 (0.1-1.2) % Neut # (Auto) 8.94 H (1.78-5.38) K/mm3 Lymph # (Auto) 0.51 L (1.32-3.57) K/mm3 [place] # (Auto) 0.08 L (0.30-0.82) K/mm3 Eos # (Auto) 0.00 L (0.04-0.54) K/mm3 Baso # (Auto) 0.01 (0.01-0.08) K/mm3 Manual Slide Review Abnormal smear Sodium 138 137 (136-145) mEq/L Potassium 4.3 4.7 (3.5-5.1) mEq/L Chloride 107 105 (98-107) mEq/L Carbon Dioxide 19 L 21 (21-32) mEq/L Anion Gap 16.3 H 15.7 H (5-15) BUN 25 H 22 H (7-18) mg/dL Creatinine 1.6 H 1.6 H (0.7-1.3) mg/dL Est Cr Clr Drug Dosing 45.63 45.63 mL/min Estimated GFR (MDRD) 43 43 (>60) mL/min BUN/Creatinine Ratio 15.6 13.8 L (14-18) Glucose 112 146 H (80-115) mg/dL Calcium 8.6 8.5 (8.5-10.1) mg/dL Magnesium 1.9 (1.8-2.4) mg/dl C-Reactive Protein < 0.2 (<1.0) mg/dL NAHED Results - Last 24 hrs: Microbiology 11/28/17 02:18 Group A Streptococcus Rapid Screen - Final Throat NEGATIVE STREP A SCREEN Med Orders - Current: Current Medications Acetaminophen (Tylenol) 650 mg PO Q4H PRN PRN Reason: Pain (Mild 1-3)/fever Hydrocodone Bitart/Acetaminophen ([place] 325-5 Mg) 1 tab PO Q4H PRN PRN Reason: Pain (moderate 4-6) Albuterol/Ipratropium (Duoneb 3.0-0.5 Mg/3 Ml) 3 ml NEB Q4H PRN PRN Reason: Shortness Of Breath/wheezing Allopurinol (Zyloprim) 300 mg PO DAILY [facility] Bisacodyl (Dulcolax) 5 mg PO DAILY PRN PRN Reason: Constipation Bupropion HCl (Wellbutrin Xl) 300 mg PO BEDTIME [facility] Carvedilol (Coreg) 6.25 mg PO BID [facility] Diphenhydramine HCl (Benadryl) 25 mg IVPUSH Q8H PRN PRN Reason: Itching Docusate Sodium (Colace) 100 mg PO BID PRN PRN Reason: Constipation Famotidine (Pepcid) 20 mg PO BID [facility] Last Admin: 11/28/17 09:13 Dose: 20 mg Hydralazine HCl (Apresoline) 20 mg IVPUSH Q4H PRN PRN Reason: Hypertension Last Admin: 11/28/17 16:33 Dose: 20 mg Sodium Chloride (Normal Saline) 1,000 mls @ 100 mls/hr IV ASDIRECTED ANY Stop: 11/29/17 04:00 Last Admin: 11/28/17 09:13 Dose: 100 mls/hr Magnesium Sulfate (Pharmacy To Dose - Magnesium Replacement) 0 dose .XX ASDIRECTED PRN PRN Reason: RX TO WATCH MAG LEVELS Methylprednisolone Sodium Succinate (Solu-Medrol) 40 mg IVPUSH Q6H ANY Last Admin: 11/28/17 12:08 Dose: 40 mg Metoprolol Tartrate (Lopressor) 5 mg IVPUSH Q4H PRN PRN Reason: Tachycardia Ondansetron HCl (Zofran Odt) 4 mg PO Q6H PRN PRN Reason: nausea, able to take PO Ondansetron HCl (Zofran) 4 mg IV Q6H PRN PRN Reason: Nausea/Vomiting Polyethylene Glycol (Miralax) 17 gm PO DAILY PRN PRN Reason: Constipation Potassium Chloride (Pharmacy To Dose - Potassium Replacement) 0 dose .XX ASDIRECTED PRN PRN Reason: RX TO WATCH K LEVELS Racepinephrine (S-2 2.25%) 0.5 ml NEB Q4H PRN PRN Reason: Allergic Rxn/SOB Senna/Docusate Sodium (Senna Plus) 1 tab PO BID PRN PRN Reason: Constipation Simvastatin (Zocor) 40 mg PO BEDTIME ANY Zinc Acetate/Diphenhydramine (Benadryl Itch Stopping Crm) 0 gm TOP Q6H PRN PRN Reason: Itching Discontinued Medications Diphenhydramine HCl (Benadryl) 25 mg IVPUSH ONETIME ONE Stop: 11/28/17 06:27 Last Admin: 11/28/17 07:19 Dose: 25 mg Diphenhydramine HCl (Benadryl) Confirm Administered Dose 50 mg .ROUTE .STK-MED ONE Stop: 11/28/17 07:20 Last Admin: 11/28/17 08:18 Dose: Not Given Epinephrine HCl (Adrenalin) 0.5 mg IM ONETIME ONE Stop: 11/28/17 02:03 Last Admin: 11/28/17 02:17 Dose: 0.5 mg Famotidine (Pepcid) 40 mg IVPUSH ONETIME ONE Stop: 11/28/17 00:58 Last Admin: 11/28/17 01:17 Dose: 40 mg Sodium Chloride (Normal Saline) 1,000 mls @ 999 mls/hr IV ONETIME ONE Stop: 11/28/17 04:19 Last Admin: 11/28/17 03:24 Dose: 999 mls/hr Iopamidol (Isovue-300 (61%)) 80 ml IVPUSH ONETIME ONE Stop: 11/28/17 03:37 Last Admin: 11/28/17 05:54 Dose: 80 ml Methylprednisolone Sodium Succinate (Solu-Medrol) 125 mg IVPUSH ONETIME ONE Stop: 11/28/17 00:58 Last Admin: 11/28/17 01:17 Dose: 125 mg Methylprednisolone Sodium Succinate (Solu-Medrol) 125 mg IVPUSH ONETIME ONE Stop: 11/28/17 06:33 Last Admin: 11/28/17 07:17 Dose: 125 mg Ondansetron HCl (Zofran) 4 mg IVPUSH ONETIME ONE Stop: 11/28/17 06:44 Last Admin: 11/28/17 07:12 Dose: 4 mg Bupropion Hcl 150 Mg (Sr) 0 each PO BID ANY Pneumococcal Polyvalent Vaccine (Pneumovax 23) 0.5 ml IM .ONCE ONE Stop: 11/28/17 10:54 Racepinephrine (S-2 2.25%) 0.5 ml NEB ONETIME ONE Stop: 11/28/17 06:41 Last Admin: 11/28/17 06:49 Dose: 0.5 ml - Exam General: Reports: Alert, Oriented, Cooperative, No Acute Distress HEENT: Reports: Pupils Equal, Pupils Reactive, EOMI, Mucous Membr. Moist/[place] Neck: Reports: Supple, Trachea Midline, No JVD Lungs: Reports: Clear to Auscultation, Normal Respiratory Effort Cardiovascular: Reports: Regular Rate, Regular Rhythm GI/Abdominal Exam: Normal Bowel Sounds, Soft, Non-Tender, No Organomegaly, No Distention, No Abnormal Bruit, No Mass (Male) Exam: Deferred Rectal (Males) Exam: Deferred Back Exam: Reports: Normal Inspection, Decreased Range of Motion Extremities: Normal Inspection, Normal Range of Motion, Non-Tender, No Pedal Edema, Normal Capillary Refill Skin: Reports: Warm, Dry, Intact, Other (able to create hives by writing on his skin ) Neurological: Reports: No New Focal Deficit Psy/Mental Status: Reports: Alert, Normal Affect, Normal Mood
[2017-11-28] MEDS: Carvedilol 6.25 MG Tab PO SCH (20:27)
[2017-11-28] MEDS ORDERED: buPROPion 150 MG Tab.ER PO SCH (21:00)
[2017-11-28] MEDS ORDERED: BUPROPION HCL 150 MG PO SCH (21:00)
[2017-11-28] MEDS ORDERED: Simvastatin 40 MG Tab PO SCH (21:00)
[2017-11-29] MEDS: methylPREDNISolone Sodium Succinate 40 MG/1 ML SDV IVPUSH SCH ×2 (01:20→06:17)
[2017-11-29] MEDS: Carvedilol 6.25 MG Tab PO SCH (08:06)
[2017-11-29 08:07] VITALS: BP 145/83
[2017-11-29] MEDS: Famotidine 20 MG Tab PO SCH (08:07)
[2017-11-29] MEDS ORDERED: Allopurinol 300 MG Tab PO SCH (09:00)
== END 2017-11-29 08:15 | disposition home or self-care (01) | DRG 916 ==
LOC: JD.ED 00:53 → JD.ICU 07:25 → OBSVTOIN 09:05 → JD.MS 20:34 → JD.ICU 20:34 → JD.MS 20:52
PROVIDERS: ADMIT Internal Medicine; ATTEND Internal Medicine
DX: T78.2XXA Anaphylactic shock, unspecified, initial encounter (principal); H54.7 Unspecified visual loss; I48.91 Unspecified atrial fibrillation; E78.5 Hyperlipidemia, unspecified; I12.9 Hypertensive chronic kidney disease with stage 1 through stage 4 chronic kidney disease, or unspecified chronic kidney disease; K21.9 Gastro-esophageal reflux disease without esophagitis; M10.9 Gout, unspecified; F17.220 Nicotine dependence, chewing tobacco, uncomplicated; J30.2 Other seasonal allergic rhinitis; N18.3 Chronic kidney disease, stage 3 (moderate); Z79.899 Other long term (current) drug therapy; Z96.649 Presence of unspecified artificial hip joint; Z86.010 Personal history of colon polyps; Z85.46 Personal history of malignant neoplasm of prostate; Z90.5 Acquired absence of kidney
CPT/HCPCS: 36415; 70491; 70491-26; 71046; 71046-26; 80048; 83735; 85025; 86140; 87081; 87430; 90732; 92610-GN; 94640; 96361; 96372; 96374; 96375; 96376; 97162-GP; 97165-GO; 99285-25; A9270-GY; G0009; J0171; J0360; J1200; J2405; J2920; J2930; J7040; Q9967

== ENCOUNTER 2023-04-30 08:55 | Day surgery (SDC) | payer BC ==
[~2023-04-30 08:55] MED LIST: Lactated Ringers 1,000 ML IV SCH; Sodium Chloride 0.9% 10 ML Syringe FLUSH PRN; Sodium Chloride 0.9% 10 ML Syringe FLUSH SCH
[2023-04-30] MEDS ORDERED: Ropivacaine 0.5% 5 MG/ML 30 ML SDV ONE (09:03)
[2023-04-30] MEDS ORDERED: Ondansetron 4 MG/2 ML SDV ONE (09:07)
[2023-04-30] MEDS ORDERED: Dexamethasone 4 MG/ML 5 ML MDV ONE (09:07)
[2023-04-30] MEDS ORDERED: Lidocaine 2% 5 ML SDV ONE (09:07)
[2023-04-30] MEDS ORDERED: Rocuronium 50 MG/5 ML Vial ONE (09:07)
[2023-04-30] MEDS ORDERED: Propofol 200 MG/20 ML SDV ONE (09:08)
[2023-04-30] MEDS ORDERED: fentaNYL 100 MCG/2 ML SDV ONE ×2 (09:08→09:53)
[2023-04-30] MEDS ORDERED: Tranexamic Acid 1,000 MG/10 ML Vial ONE (09:10)
[2023-04-30] MEDS ORDERED: Vancomycin 1 GM SDV ONE (09:10)
[2023-04-30] MEDS ORDERED: Lidocaine 2% 11 ML Jelly Filled Syringe ONE (09:13)
[2023-04-30] MEDS ORDERED: Acetaminophen 325 MG Tab PO SCH (09:18)
[2023-04-30] MEDS ORDERED: oxyCODONE ER 10 MG TAB.ER PO SCH (09:18)
[2023-04-30] MEDS ORDERED: Pregabalin 25 MG Cap PO SCH (09:19)
[2023-04-30] MEDS ORDERED: Phenylephrine 1% 10 MG/ML SDV ONE (10:15)
[2023-04-30] MEDS ORDERED: Lactated Ringers 1,000 ML IV ONE (10:15)
[2023-04-30] MEDS ORDERED: Ondansetron 4 MG/2 ML SDV IVPUSH PRN (10:32)
[2023-04-30] MEDS ORDERED: HYDROmorphone 0.5 MG/0.5 ML Syringe IVPUSH PRN (10:32)
[2023-04-30] MEDS ORDERED: fentaNYL 100 MCG/2 ML SDV IVPUSH PRN (10:32)
[2023-04-30] MEDS ORDERED: ceFAZolin 2 GM Vial ONE (10:33)
[2023-04-30] MEDS ORDERED: Sugammadex Sodium 200 MG/2 ML VIAL ONE (11:29)
[2023-04-30] MEDS ORDERED: Cyclobenzaprine 10 MG Tab PO PRN (12:11)
[2023-04-30] MEDS ORDERED: oxyCODONE 5 MG Tab PO PRN (12:11)
[2023-04-30 15:23] VITALS: BP 140/91; PULSE 80
== END 2023-04-30 15:10 | disposition home or self-care (01) ==
LOC: JD.SDS 08:55
PROVIDERS: ATTEND Orthopaedic Surgery
DX: M19.012 Primary osteoarthritis, left shoulder (principal); I48.91 Unspecified atrial fibrillation; I12.9 Hypertensive chronic kidney disease with stage 1 through stage 4 chronic kidney disease, or unspecified chronic kidney disease; N18.9 Chronic kidney disease, unspecified; I73.9 Peripheral vascular disease, unspecified; F32.A Depression, unspecified; F41.1 Generalized anxiety disorder; E78.00 Pure hypercholesterolemia, unspecified; I10 Essential (primary) hypertension; K21.9 Gastro-esophageal reflux disease without esophagitis; Z79.01 Long term (current) use of anticoagulants; Z87.891 Personal history of nicotine dependence; Z79.899 Other long term (current) drug therapy; Z85.46 Personal history of malignant neoplasm of prostate
CPT/HCPCS: 23472; 64415; 76000; 97110; 97161; A9270; C1713; C1769; C1776; J0690; J1100; J2371; J2405; J2704; J2795; J3010; J3370; J3490; J7030; J7120; 01638

== ENCOUNTER 2023-07-05 14:02 | Emergency (ER) | payer BC ==
[2023-07-05] MEDS ORDERED: Sodium Chloride 0.9% 10 ML Syringe FLUSH PRN ×2 (14:14→14:50)
[2023-07-05 14:26] LABS: BASOPHILS ABSOLUTE AUTO 0.1 K/mm3 (0.0-0.2); BASOPHILS PERCENT AUTO 0.8 % (0.0-1.0); EOSINOPHILS ABSOLUTE AUTO 0.1 K/mm3 (0.0-0.4); EOSINOPHILS PERCENT AUTO 1.4 % (0.0-6.0); HEMATOCRIT 39.9 % (42.0-52.0); HEMOGLOBIN 13.6 gm/dl (14.0-18.0); IMMATURE GRAN ABSOLUTE AUTO 0.02 K/mm3 (0.00-0.05); IMMATURE GRAN PERCENT AUTO 0.2 % (0.0-0.4); LYMPHOCYTES ABSOLUTE AUTO 2.3 K/mm3 (1.0-4.8); LYMPHOCYTES PERCENT AUTO 27.3 % (24.0-44.0); MEAN CORPUSCULAR HEMOGLOBIN 33.1 pg (28.0-32.0); MEAN CORPUSCULAR HGB CONC 34.1 g/dl (32.0-36.0); MEAN CORPUSCULAR VOLUME 97.1 fl (83.0-99.0); MEAN PLATELET VOLUME 9.4 fl (9.4-12.4); MONOCYTES ABSOLUTE AUTO 0.5 K/mm3 (0.0-0.8); MONOCYTES PERCENT AUTO 6.4 % (0.0-8.0); NEUTROPHILS ABSOLUTE AUTO 5.3 K/mm3 (1.8-7.7); NEUTROPHILS PERCENT AUTO 63.9 % (41.0-71.0); PLATELET COUNT,PLT 201 K/mm3 (150-400); RED BLOOD CELL COUNT 4.11 M/mm3 (4.52-5.90)
[2023-07-05 14:44] LABS: INR 0.99; PROTHROMBIN TIME 10.6 SECONDS (9.7-12.0)
[2023-07-05 14:45] LABS: PTT,PARTIAL THROMBOPLSTIN TIME 28.7 SECONDS (21.7-31.4)
[2023-07-05 14:47] LABS: A/G RATIO 0.9 (1-2); ALBUMIN 3.3 g/dl (3.4-5.0); BILIRUBIN TOTAL 0.4 mg/dL (0.2-1.0); BUN/CREATININE RATIO 17.3 (14-18); CALCIUM 9.3 mg/dL (8.5-10.1); CREATININE 1.1 mg/dL (0.7-1.3); EST CRCL DRUG DOSING (CG) 60.83 mL/min; MAGNESIUM 1.7 mg/dL (1.8-2.4)
[2023-07-05] MEDS ORDERED: Iopamidol 755 Mg/ML 100 ML Bottle IVPUSH ONE (14:50)
[2023-07-05] MEDS ORDERED: Sodium Chloride 0.9% 45 ML IV SCH (15:00)
[2023-07-05 16:26] VITALS: BP 140/89; PULSE 82
== END 2023-07-05 16:25 | disposition home or self-care (01) ==
LOC: JD.ED 14:02
DX: H53.131 Sudden visual loss, right eye (principal); E78.00 Pure hypercholesterolemia, unspecified; I10 Essential (primary) hypertension
CPT/HCPCS: 36415; 70450; 70496; 70498; 71046; 80053; 82947; 83735; 85025; 85610; 85730; 99284; J3490; Q9967

== ENCOUNTER 2023-12-07 09:01 | Emergency (ER) | payer BC ==
[2023-12-07] MEDS: Gabapentin 100 MG Cap PO ONE (10:14)
[2023-12-07 10:16] VITALS: BP 152/96; PULSE 78
== END 2023-12-07 10:25 | disposition home or self-care (01) ==
LOC: JD.ED 09:01
DX: M79.2 Neuralgia and neuritis, unspecified (principal); I48.91 Unspecified atrial fibrillation; K21.9 Gastro-esophageal reflux disease without esophagitis; E78.00 Pure hypercholesterolemia, unspecified; N18.9 Chronic kidney disease, unspecified; I12.9 Hypertensive chronic kidney disease with stage 1 through stage 4 chronic kidney disease, or unspecified chronic kidney disease; E11.22 Type 2 diabetes mellitus with diabetic chronic kidney disease; Z79.899 Other long term (current) drug therapy; Z79.01 Long term (current) use of anticoagulants
CPT/HCPCS: 99283; A9270